=== PATIENT | female | born 1950 | race Caucasian/White ===

== ENCOUNTER → 2017-04-04 | Outpatient (CLI) | payer OTHER ==
[~2017-04-04] MED LIST: ACETAMINOPHEN-1 EAC1 PO; ALPRAZOLAM ER1 MG PO; AMLODIPINE BESYL5 MG PO; ASPIRIN81 M2 PO; CLARITIN10 MG PO; DESYREL150 MG PO; FISH OIL 1,001000 M2 PO; FLAXSEED OIL1000 M2 PO; HYDROCODON-ACE1 EA11 PO; INNOPRAN XL120 MG PO; LEVOTHYROXIN0.088 MG PO; OMEPRAZOLE 20 M20 M1 PO; SIMVASTATIN40 MG PO; SKELAXIN 800 M800 M1 PO; TOPROL XL50 MG PO; UNICOMPLEX M TA1 TA1 PO
== END ==
LOC: RAD 09:54
DX: Z12.31 Encounter for screening mammogram for malignant neoplasm of breast (principal)

== ENCOUNTER → 2017-11-08 | Outpatient (CLI) | payer OTHER ==
[~2017-11-08] VITALS: Ht 160 cm; Wt 75.8 kg
[~2017-11-08] MED LIST changes: +BILBERRY100 MG PO; +FLAX OIL1000 MG PO; +LUTEIN 15 MG S1 EACH PO
--- NOTE | ~2017-11-08 | P ---
[facility] [place] [address] PROCEDURE REPORT Name: VALARIEVANE [facility] [id number] Admission: 11/08/17 Attend Phys: Martin Mccarty MD Discharge: Date of : 46 Report #: [id number] THIS REPORT FOR: //name// CC: Martin Garcia MD OUTPATIENT COLONOSCOPY REPORT BRIEF HISTORY: The patient is a 66-year-old woman with family history of colon cancer, brother about age 50, grandfather in early 70s. Mother had pancreatic cancer. The patient herself has had 4 small adenomas in the past removed. PREOPERATIVE DIAGNOSES: 1. Family history of colon cancer and personal history of colon polyps. 2. High risk screening colonoscopy. POSTOPERATIVE DIAGNOSIS: Moderate sigmoid diverticulosis coli. MEDICATIONS: Deep sedation with propofol per Anesthesia. SPECIMEN: None. ESTIMATED BLOOD LOSS: None. PROCEDURE: Colonoscopy to cecum and terminal ileum. FINDINGS: Prior to propofol sedation, the procedure of colonoscopy was reviewed with the patient as well as potential risks and its complications. She indicates she understands and desires to proceed. DESCRIPTION OF PROCEDURE: With the patient in left lateral decubitus position, digital examination was completed, which revealed no abnormalities. Subsequently, the LeadiD video colonoscope was introduced in the rectum, advanced under direct vision to the cecum. It was done with minimal difficulty. The cecum was identified by the ileocecal valve and the appendiceal orifice. I was able to visualize the distal segment of terminal ileum, which was inspected and noted to be unremarkable. At that point, scope was withdrawn and careful circumferential views obtained including retroflexion of the scope in the ascending colon. Upon slow withdrawal of the scope, the prep was noted to be excellent. The mucosa was within normal limits, normal vascular pattern, and normal light reflex. As we withdrew the scope, no mucosal abnormalities were seen. No polyps were seen on this examination. In the sigmoid colon, there was noted to be moderately severe diverticular disease without endoscopic evidence of diverticulitis. Scope was withdrawn in the rectum and no abnormalities were seen. Upon retroflexion, no abnormalities were seen. The scope was withdrawn. The patient tolerated the procedure well. [address] [address] PROCEDURE REPORT Name: VANE SHEPPARD Room #: REG [facility].#: [id number] Admission: 11/08/17 Attend Phys: Martin Mccarty MD Discharge: Date of : 46 Report #: [id number] CONDITION OF THE PATIENT UPON DISCHARGE: Following procedure, the patient was drowsy, aroused and conversant and will be discharged to home when fully ambulatory. INSTRUCTIONS TO THE PATIENT AND FAMILY AT THE TIME OF DISCHARGE: No neoplastic lesions were seen. I would suggest to return in 5 years for followup colonoscopy. She will otherwise return to the care of Dr. Mina Garcia. Last colonoscopy was about 4 years ago. Withdrawal time from the cecum was 13 minutes 39 seconds. <ELECTRONICALLY SIGNED> By: Martin Mccarty MD 11/09/17 [id number] Martin Mccarty MD /nt
== END ==
LOC: GI 06:36
DX: Z09 Encounter for follow-up examination after completed treatment for conditions other than malignant neoplasm (principal); Z86.010 Personal history of colon polyps; K57.30 Diverticulosis of large intestine without perforation or abscess without bleeding; Z80.0 Family history of malignant neoplasm of digestive organs
CPT/HCPCS: 62110; 62900

== ENCOUNTER → 2019-05-02 | Outpatient (CLI) | payer OTHER | LOC: RAD 14:35 | DX: Z12.31 Encounter for screening mammogram for malignant neoplasm of breast (principal) ==

== ENCOUNTER → 2020-06-30 | Outpatient (CLI) | payer OTHER | LOC: BC 13:24 | PROVIDERS: ATTEND Family Medicine | DX: Z12.31 Encounter for screening mammogram for malignant neoplasm of breast (principal) ==

== ENCOUNTER → 2021-07-06 | Outpatient (CLI) | payer OTHER | LOC: BC 13:50 | PROVIDERS: ATTEND Family Medicine | DX: Z12.31 Encounter for screening mammogram for malignant neoplasm of breast (principal) ==

== ENCOUNTER → 2021-10-06 | Outpatient (CLI) | payer OTHER | LOC: RAD 15:02 | PROVIDERS: ATTEND Family Medicine | DX: M47.812 Spondylosis without myelopathy or radiculopathy, cervical region (principal); M54.2 Cervicalgia ==